=== PATIENT | male | born 1945 | race Caucasian/White ===

== ENCOUNTER 2019-09-26 10:26 | Day surgery (SDC) | payer MEDICARE, BC ==
[2019-09-25 13:04] LABS: BASOPHILS % (AUTO) 0.7 % (0-1); EOSINOPHILS # (AUTO) 0.2 X10'3 (0-0.9); EOSINOPHILS % (AUTO) 3.5 % (0-6); HEMATOCRIT 49.5 % (42.0-52.0); HEMOGLOBIN 16.6 g/dl (14.0-17.9); LYMPHOCYTES # (AUTO) 1.2 X10'3 (1.1-4.8); LYMPHOCYTES % (AUTO) 20.8 % (21-51); MEAN CORPUSCULAR HEMOGLOBIN 31.1 PG (27.0-31.0); MEAN CORPUSCULAR HGB CONC 33.5 g/dL (33.0-36.5); MEAN CORPUSCULAR VOLUME 92.9 FL (78-98); MEAN PLATELET VOLUME 8.7 FL (7.4-10.4); MONOCYTES # (AUTO) 0.7 X10'3 (0-0.9); MONOCYTES % (AUTO) 12.4 % (2-12); NEUTROPHILS # (AUTO) 3.7 X10'3 (1.8-7.7); NEUTROPHILS % (AUTO) 62.6 % (42-75); PLATELET COUNT 204 X10'3 (140-440); RED BLOOD COUNT 5.33 X10'6 (4.70-6.10); RED CELL DISTRIBUTION WIDTH 14.6 % (11.5-14.5)
[2019-09-25 13:09] LABS: ALBUMIN 3.7 G/DL (3.4-5.0); ANION GAP 11 (8-16); BLOOD UREA NITROGEN 22 MG/DL (7-18); BUN/CREATININE RATIO 14.8 (5.4-32.0); CALCIUM 9.1 MG/DL (8.5-10.1); CHLORIDE 105 MMOL/L (99-107); CREATININE 1.49 MG/DL (0.60-1.10); GLUCOSE 107 MG/DL (70-104); SODIUM 142 MMOL/L (135-145); TOTAL CARBON DIOXIDE 25.7 MMOL/L (24-32); eGFR 46 ML/MIN
[2019-09-25 13:13] LABS: PARTIAL THROMBOPLASTIN TIME 25 SECONDS (22-32)
[~2019-09-26] VITALS: Ht 188 cm; Wt 124.8 kg
[2019-09-26] VITALS (17 sets, daily range): BP systolic 110–160; BP diastolic 58–99
[~2019-09-26 10:26] MED LIST: APIX5TAB3 PO
[2019-09-26] MEDS ORDERED: OMEG1CAP46 PO (11:20)
[2019-09-26] MEDS ORDERED: ASPI-1094 PO (11:20)
[2019-09-26] MEDS ORDERED: FURO20TA4 PO (11:20)
[2019-09-26] MEDS ORDERED: LOSA100T57 PO (11:20)
[2019-09-26] MEDS ORDERED: IBUP-2417 PO (11:20)
[2019-09-26] MEDS ORDERED: AMLO10TA14 PO (11:20)
[2019-09-26] MEDS ORDERED: ATOR20TA PO (11:20)
[2019-09-26] MEDS ORDERED: TRIA1TAB3 PO (11:20)
[2019-09-26] MEDS ORDERED: CYCL10TA25 PO (11:20)
[2019-09-26] MEDS ORDERED: MULT-1085 PO (11:26)
[2019-09-26] MEDS ORDERED: CHOL10006 PO (11:32)
[2019-09-26] MEDS ORDERED: MOME45CR3 TOP (11:32)
[2019-09-26] MEDS ORDERED: ASCO500C17 PO (11:32)
[2019-09-26] MEDS ORDERED: KEN0.1O TP (11:32)
[2019-09-26] MEDS ORDERED: VITA400C19 PO (11:32)
[2019-09-26] MEDS ORDERED: CALC-331 PO (11:32)
[2019-09-26] MEDS ORDERED: acetylcysteine 200 MG/ml 4ml vial PO ONE (12:00)
[2019-09-26] MEDS ORDERED: LORazepam 0.5 MG tablet PO PRN (12:00)
[2019-09-26] MEDS ORDERED: sodium bicarbonate (8.4%) inj. 150 ML in dextrose 5%-water 1,000 ML IV ONE (12:00)
[2019-09-26] MEDS ORDERED: diphenhydrAMINE 25mg capsule PO PRN (12:00)
[2019-09-26] MEDS ORDERED: midazolam 2 mg/2 ml injection ONE (14:40)
[2019-09-26] MEDS ORDERED: nitroGLYCERIN-Tridil 50MG/D5W 250 ML IV ONE (14:40)
[2019-09-26] MEDS ORDERED: iohexol 350 MG/ML 50ML vial IV ONE (14:40)
[2019-09-26] MEDS ORDERED: LIDOcaine 1% (10mg/ml)w/preservative injection 20ml MDV ONE (14:40)
[2019-09-26] MEDS ORDERED: fentaNYL/PF 50MCG/1 ML 2ML syringe ONE (14:40)
[2019-09-26] MEDS ORDERED: iohexol 350MG/ML 100ml bottle IV ONE (14:40)
[2019-09-26] MEDS ORDERED: heparin 1,000unit/ml 10ml vial 10 ML ONE ×2 (14:40→15:50)
[2019-09-26] MEDS ORDERED: heparin 25,000 UNIT/250ml bag 250 ML IV ONE (15:50)
[2019-09-26] MEDS ORDERED: iohexol 350 MG/1 ML 200ml bottle ONE (16:00)
[2019-09-26] MEDS ORDERED: heparin 1,000 UNITS/NS 500ml 500 ML ONE (16:10)
[2019-09-26] MEDS ORDERED: clopidogrel 300mg tablet ONE (16:19)
[2019-09-26] MEDS ORDERED: ibuprofen 200mg tablet PO PRN (17:25)
[2019-09-26] MEDS ORDERED: normal saline 1000ml 1,000 ML IV ONE (17:30)
[2019-09-26] MEDS ORDERED: aspirin 81mg tab.chew PO SCH ×2 (17:32→17:37)
[2019-09-26] MEDS ORDERED: HYDROcodone/acetaminophen 10/325mg tab PO PRN ×2 (17:35)
[2019-09-26] MEDS ORDERED: proCHLORperazine 10 MG/2 ml inj IV PRN (17:35)
[2019-09-26] MEDS ORDERED: OXAZEpam 15mg capsule PO PRN (17:35)
[2019-09-26] MEDS ORDERED: acetaminophen 325mg tablet PO PRN (17:35)
[2019-09-26] MEDS ORDERED: magnesium hydroxide 30ml (MOM) UD suspension PO PRN (17:35)
[2019-09-26] MEDS ORDERED: cyclobenzaprine 10mg tablet PO PRN (17:35)
--- NOTE | 2019-09-26 18:37 | NUR ---
Problems reprioritized. Patient report given, questions answered & plan of care reviewed with MARIA LUZ Rizo, pt will be going to room 3017P shortly.
--- NOTE | 2019-09-26 19:00 | NUR ---
pt in room 3015B, VSS, pt's R groin dsg CDI, pt is in stable condition, pt is in no distress at this time, MARIA LUZ Hand at pt's bedside.
[2019-09-26] MEDS: docusate sod 100mg capsule PO SCH (20:00)
--- NOTE | 2019-09-26 20:00 | NUR ---
pt arrived to pcu unit from short stay via gurney, pt is not in any respiratory distress at this time, R groin CDI with fempop in place, will continue to monitor pt closely
[2019-09-26] MEDS: cyclobenzaprine 10mg tablet PO SCH (20:02)
[2019-09-26] MEDS: amiodarone 200mg tablet PO SCH (20:03)
[2019-09-26] MEDS: triamcinolone acet 0.1% cream 15gm TP SCH (20:03)
[2019-09-26] MEDS ORDERED: atorvastatin 20mg tablet PO SCH (21:00)
[2019-09-26] MEDS: acetylcysteine 200 MG/ml 4ml vial PO SCH (21:13)
--- NOTE | 2019-09-26 23:00 | NUR ---
fempop removed from R groin. no hematoma or any bleeding present. dressing is CDI, will continue to monitor pt
[2019-09-27] VITALS: BP 122/75
[2019-09-27 02:00] VITALS: BP 131/74
[2019-09-27 03:45] VITALS: BP 137/70
[2019-09-27 06:00] VITALS: BP 139/72
--- NOTE | 2019-09-27 06:00 | NUR ---
Patient in room . I have received report from Peace BRAGA and had the opportunity to ask questions and assume patient care.
--- NOTE | 2019-09-27 06:16 | NUR ---
Problems reprioritized. Patient report given, questions answered & plan of care reviewed with Liv BRAGA.
[2019-09-27] MEDS: docusate sod 100mg capsule PO SCH (07:24)
[2019-09-27] MEDS: cyclobenzaprine 10mg tablet PO SCH (07:24)
[2019-09-27] MEDS: amiodarone 200mg tablet PO SCH (07:25)
[2019-09-27] MEDS: acetylcysteine 200 MG/ml 4ml vial PO SCH (07:27)
[2019-09-27] MEDS: triamcinolone acet 0.1% cream 15gm TP SCH (07:28)
[2019-09-27] MEDS ORDERED: furosemide 20MG tablet PO SCH (08:00)
[2019-09-27] MEDS ORDERED: amLODIPine 5mg tablet PO SCH (08:00)
[2019-09-27] MEDS ORDERED: ascorbic acid 500mg tablet PO SCH (08:00)
[2019-09-27] MEDS ORDERED: vitamin D (cholecalciferol) 1,000 unit tablet PO SCH (08:00)
[2019-09-27] MEDS ORDERED: clopidogrel 75mg tablet PO SCH (08:00)
[2019-09-27] MEDS ORDERED: mometasone furoate 0.1% cream 15gm tube TP SCH (08:00)
[2019-09-27] MEDS ORDERED: calcium carbonate 500mg tablet PO SCH (08:00)
[2019-09-27] MEDS ORDERED: triamterene/HCTZ 37.5/25mg tablet PO SCH (08:00)
[2019-09-27] MEDS ORDERED: OMEGA-3/DHA/EPA/FISH OIL 1 EACH CAPSULE.DR PO SCH (08:00)
[2019-09-27] MEDS ORDERED: multivitamins, therapeutics tablet PO SCH (08:00)
[2019-09-27] MEDS ORDERED: aspirin 325mg tablet, delayed-release (Ecotrin) PO SCH (08:00)
[2019-09-27] MEDS ORDERED: vitamin E 400 unit capsule PO SCH (08:00)
[2019-09-27] MEDS ORDERED: losartan 50mg tablet PO SCH (08:00)
[2019-09-27 09:34] LABS: BASOPHILS % (AUTO) 0.4 % (0-1); EOSINOPHILS # (AUTO) 0.2 X10'3 (0-0.9); EOSINOPHILS % (AUTO) 2.8 % (0-6); HEMATOCRIT 46.2 % (42.0-52.0); HEMOGLOBIN 15.5 g/dl (14.0-17.9); LYMPHOCYTES # (AUTO) 0.9 X10'3 (1.1-4.8); MEAN CORPUSCULAR HEMOGLOBIN 31.5 PG (27.0-31.0); MEAN CORPUSCULAR HGB CONC 33.7 g/dL (33.0-36.5); MEAN CORPUSCULAR VOLUME 93.5 FL (78-98); MONOCYTES # (AUTO) 0.7 X10'3 (0-0.9); MONOCYTES % (AUTO) 10.2 % (2-12); NEUTROPHILS # (AUTO) 4.8 X10'3 (1.8-7.7); NEUTROPHILS % (AUTO) 72.6 % (42-75); PLATELET COUNT 193 X10'3 (140-440); RED BLOOD COUNT 4.94 X10'6 (4.70-6.10); RED CELL DISTRIBUTION WIDTH 14.3 % (11.5-14.5); WHITE BLOOD COUNT 6.6 X10'3 (4.5-11.0)
[2019-09-27 09:48] LABS: ALBUMIN 3.1 G/DL (3.4-5.0); ANION GAP 7 (8-16); BLOOD UREA NITROGEN 16 MG/DL (7-18); BUN/CREATININE RATIO 11.7 (5.4-32.0); CALCIUM 8.3 MG/DL (8.5-10.1); CHLORIDE 105 MMOL/L (99-107); CREATININE 1.37 MG/DL (0.60-1.10); GLUCOSE 171 MG/DL (70-104); POTASSIUM 3.4 MMOL/L (3.5-5.1); SODIUM 138 MMOL/L (135-145); eGFR 51 ML/MIN
[2019-09-27] MEDS ORDERED: ASPI-1265 PO (10:32)
[2019-09-27] MEDS ORDERED: ATOR40TA PO (10:32)
[2019-09-27] MEDS ORDERED: APIX5TAB3 PO (10:32)
[2019-09-27] MEDS ORDERED: AMIO200T61 PO (10:32)
[2019-09-27] MEDS ORDERED: CLOP75TA15 PO (10:34)
[2019-09-27 11:00] VITALS: BP 153/79
--- NOTE | 2019-09-27 11:45 | NUR ---
Per MD orders, patient stable for discharge home. New prescriptions faxed to pharmacy of preference. Discharge packet reviewed with patient at bedside and all questions answered to patient satisfaction. PIV discontinued, cannula intact. Tele monitoring discontinued. Transferred to private vehicle via wheelchair accompanied by RN and .
== END 2019-09-27 11:47 | disposition home or self-care (01) ==
LOC: SSTAY O 10:26 → PCU 3S 19:26 → SSTAY O 09-27 11:47
PROVIDERS: ATTEND Internal Medicine Cardiovascular Disease
DX: R06.02 Shortness of breath (principal); R53.83 Other fatigue; I25.10 Atherosclerotic heart disease of native coronary artery without angina pectoris; I12.9 Hypertensive chronic kidney disease with stage 1 through stage 4 chronic kidney disease, or unspecified chronic kidney disease; N18.3 Chronic kidney disease, stage 3 (moderate); E78.5 Hyperlipidemia, unspecified; J44.9 Chronic obstructive pulmonary disease, unspecified; G62.9 Polyneuropathy, unspecified; I48.91 Unspecified atrial fibrillation; F17.210 Nicotine dependence, cigarettes, uncomplicated; Z79.01 Long term (current) use of anticoagulants; Z79.899 Other long term (current) drug therapy; Z86.718 Personal history of other venous thrombosis and embolism; Z98.890 Other specified postprocedural states
CPT/HCPCS: 36415; 76937; 80048; 83880; 85025; 85347; 85610; 85730; 87081; 93005; 93458; 99152; 99153; C1725; C1751; C1760; C1769; C1874; C1894; C9600; J1644; J2001; J2250; J3010; J7030; Q0163; Q9967; 75625; A4620; A5120; A6258; G0378; J3490

== ENCOUNTER 2019-11-21 08:02 | Day surgery (SDC) | payer MEDICARE, BC ==
[2019-11-20 13:24] LABS: BASOPHILS % (AUTO) 0.8 % (0-1); EOSINOPHILS # (AUTO) 0.2 X10'3 (0-0.9); HEMATOCRIT 47.8 % (42.0-52.0); HEMOGLOBIN 15.9 g/dl (14.0-17.9); LYMPHOCYTES # (AUTO) 1.1 X10'3 (1.1-4.8); LYMPHOCYTES % (AUTO) 21.3 % (21-51); MEAN CORPUSCULAR HEMOGLOBIN 31.6 PG (27.0-31.0); MEAN CORPUSCULAR HGB CONC 33.2 g/dL (33.0-36.5); MEAN CORPUSCULAR VOLUME 95.1 FL (78-98); MEAN PLATELET VOLUME 9.5 FL (7.4-10.4); MONOCYTES # (AUTO) 0.8 X10'3 (0-0.9); MONOCYTES % (AUTO) 14.8 % (2-12); NEUTROPHILS % (AUTO) 59.1 % (42-75); PLATELET COUNT 181 X10'3 (140-440); RED BLOOD COUNT 5.02 X10'6 (4.70-6.10); RED CELL DISTRIBUTION WIDTH 14.4 % (11.5-14.5); WHITE BLOOD COUNT 5.1 X10'3 (4.5-11.0)
[2019-11-20 13:39] LABS: ALBUMIN 3.9 G/DL (3.4-5.0); ANION GAP 8 (8-16); BLOOD UREA NITROGEN 23 MG/DL (7-18); BUN/CREATININE RATIO 14.3 (5.4-32.0); CALCIUM 9.1 MG/DL (8.5-10.1); CHLORIDE 104 MMOL/L (99-107); CREATININE 1.61 MG/DL (0.60-1.10); GLUCOSE 101 MG/DL (70-104); POTASSIUM 3.8 MMOL/L (3.5-5.1); SODIUM 139 MMOL/L (135-145); TOTAL CARBON DIOXIDE 27.1 MMOL/L (24-32); eGFR 42 ML/MIN
[~2019-11-21] VITALS: Ht 190.5 cm; Wt 126.0 kg
[2019-11-21] VITALS (11 sets, daily range): BP systolic 127–145; BP diastolic 70–89
[~2019-11-21 08:02] MED LIST changes: +AMLO10TA14 PO; +ASCO500C17 PO; +ASPI-1094 PO; +ATOR20TA PO; +CALC-331 PO; +CHOL10006 PO; +CLOP75TA15 PO; +CYCL10TA25 PO; +FURO20TA4 PO; +IBUP-2417 PO; +KEN0.1O TP; +LOSA100T57 PO; +MOME45CR3 TOP; +MULT-1085 PO; +OMEG1CAP46 PO; +TRIA1TAB3 PO; +VITA400C19 PO
[2019-11-21] MEDS ORDERED: normal saline 1000ml 1,000 ML IV SCH (08:55)
[2019-11-21] MEDS ORDERED: MIDAZolam 1mg/ml 10ml vial IV ONE (08:55)
[2019-11-21] MEDS ORDERED: diphenhydrAMINE 25mg capsule PO ONE (08:55)
[2019-11-21] MEDS ORDERED: morphine 10mg/ml inj. IV ONE (08:55)
[2019-11-21] MEDS ORDERED: atropine 0.1mg/ml 10ml syringe IV ONE (08:55)
[2019-11-21] MEDS ORDERED: LORazepam 0.5 MG tablet PO ONE (08:55)
[2019-11-21] MEDS ORDERED: amiodarone 150mg/dext, iso-os 100 ML IV ONE (08:55)
[2019-11-21] MEDS ORDERED: APIX5TAB3 PO (09:12)
[2019-11-21] MEDS ORDERED: AMIO200T61 PO (09:12)
[2019-11-21] MEDS ORDERED: CARV-50 PO (09:12)
[2019-11-21] MEDS ORDERED: ASPI-611 PO (09:12)
[2019-11-21] MEDS ORDERED: CLOP75TA15 PO (09:14)
== END 2019-11-21 13:15 | disposition home or self-care (01) ==
LOC: SSTAY O 08:02
PROVIDERS: ATTEND Internal Medicine Cardiovascular Disease
DX: I48.19 Other persistent atrial fibrillation (principal); I25.10 Atherosclerotic heart disease of native coronary artery without angina pectoris; E78.5 Hyperlipidemia, unspecified; G62.9 Polyneuropathy, unspecified; I12.9 Hypertensive chronic kidney disease with stage 1 through stage 4 chronic kidney disease, or unspecified chronic kidney disease; N18.9 Chronic kidney disease, unspecified; F17.211 Nicotine dependence, cigarettes, in remission; Z98.890 Other specified postprocedural states; Z79.01 Long term (current) use of anticoagulants; Z95.5 Presence of coronary angioplasty implant and graft; Z86.711 Personal history of pulmonary embolism
CPT/HCPCS: 36415; 80048; 85025; 85610; 92960; 93005; J2250; J2270; J7030; Q0163